=== PATIENT | female | born 1945 | race Two or more races ===

== ENCOUNTER → 2019-01-21 | Outpatient (CLI) | payer OTHER | END | disposition home or self-care (01) | LOC: MRI 12:49 | DX: M54.5 Low back pain (principal); C50.412 Malignant neoplasm of upper-outer quadrant of left female breast; I10 Essential (primary) hypertension; E78.2 Mixed hyperlipidemia; Z98.61 Coronary angioplasty status; Z95.5 Presence of coronary angioplasty implant and graft; E03.8 Other specified hypothyroidism; E04.8 Other specified nontoxic goiter | CPT/HCPCS: 72148 ==

== ENCOUNTER 2019-06-03 10:25 | Emergency (ER) | payer OTHER ==
[~2019-06-03] VITALS: Ht 167.6 cm; Wt 90.7 kg
[2019-06-03] MEDS ORDERED: TOPROL XL100 M1 (10:37)
[2019-06-03] MEDS ORDERED: NORVASC2.5 MG PO (10:38)
[2019-06-03] MEDS ORDERED: ASA81 MG PO (10:38)
[2019-06-03] MEDS ORDERED: LEVOTHYROXINE25 MCG (10:38)
[2019-06-03] MEDS ORDERED: LIPITOR20 MG PO (10:38)
[2019-06-03] MEDS ORDERED: FOSAMAX70 MG PO (10:39)
== END 2019-06-03 14:00 | disposition home or self-care (01) ==
LOC: ER 10:25
DX: G89.11 Acute pain due to trauma (principal); R07.89 Other chest pain

== ENCOUNTER 2020-12-19 10:25 | Outpatient (CLI) | payer OTHER ==
[~2020-12-19 10:25] MED LIST: ASA81 MG PO; FOSAMAX70 MG PO; LEVOTHYROXINE25 MCG; LIPITOR20 MG PO; NORVASC2.5 MG PO; TOPROL XL100 M1
== END 2020-12-19 10:39 | disposition home or self-care (01) ==
LOC: SONOGRAMA 10:25
PROVIDERS: ATTEND Internal Medicine
DX: E04.2 Nontoxic multinodular goiter (principal)

== ENCOUNTER 2020-12-24 08:36 | Emergency (ER) | payer OTHER ==
[~2020-12-24] VITALS: Ht 167.6 cm; Wt 92.5 kg
[2020-12-24] MEDS ORDERED: ELIQUIS5 MG (09:27)
[2020-12-24] MEDS ORDERED: MEDROLPACK PO (14:18)
[2020-12-24] MEDS ORDERED: NORFLEX100MG PO (14:18)
[2021-01-15] MEDS ORDERED: VITAMIN B122500 MCG (08:33)
[2021-01-15] MEDS ORDERED: VITAMIN C100 MG (08:33)
[2021-01-15] MEDS ORDERED: SKELAXIN800 MG PO (11:12)
[2021-01-15] MEDS ORDERED: DICLOFENAC POTA50 MG PO (11:12)
[2021-01-15] MEDS ORDERED: ULTRAM50 MG PO (11:12)
== END 2020-12-24 14:36 | disposition home or self-care (01) ==
LOC: ER 08:36
DX: M54.5 Low back pain (principal); M54.6 Pain in thoracic spine

== ENCOUNTER 2021-06-22 12:40 | Emergency (ER) | payer OTHER ==
[~2021-06-22] VITALS: Ht 167.6 cm; Wt 90.7 kg
[~2021-06-22 12:40] MED LIST changes: +DICLOFENAC POTA50 MG PO; +ELIQUIS5 MG; +MEDROLPACK PO; +NORFLEX100MG PO; +SKELAXIN800 MG PO; +ULTRAM50 MG PO; +VITAMIN B122500 MCG; +VITAMIN C100 MG
== END 2021-06-22 16:33 | disposition home or self-care (01) ==
LOC: ER 12:40
DX: M54.5 Low back pain (principal); I10 Essential (primary) hypertension

== ENCOUNTER 2021-07-26 08:12 | Emergency (ER) | payer OTHER ==
[~2021-07-26] VITALS: Ht 167.6 cm; Wt 91.6 kg
[2021-07-26] MEDS ORDERED: FEMARA2.5 MG PO (08:29)
[2021-07-26] MEDS ORDERED: CELEBREX100 MG PO (11:00)
[2021-07-26] MEDS ORDERED: SKELAXIN800 MG PO (11:00)
[2021-07-26] MEDS ORDERED: PERCOCET 5-3251 EACH PO (11:00)
== END 2021-07-26 12:51 | disposition home or self-care (01) ==
LOC: ER 08:12
DX: M54.2 Cervicalgia (principal); M62.838 Other muscle spasm

== ENCOUNTER → 2022-05-08 | Emergency (ER) | payer OTHER ==
[~2022-05-08] VITALS: Ht 167.6 cm; Wt 90.7 kg
[~2022-05-08] MED LIST changes: +CELEBREX100 MG PO; +FEMARA2.5 MG PO; +PERCOCET 5-3251 EACH PO
== END | disposition home or self-care (01) ==
LOC: ER 09:06
DX: M54.31 Sciatica, right side (principal); I10 Essential (primary) hypertension

== ENCOUNTER 2022-06-04 07:43 | Outpatient (CLI) | payer OTHER | END 2022-06-04 07:46 | disposition home or self-care (01) | LOC: MRI 07:43 | PROVIDERS: ATTEND Internal Medicine | DX: R42 Dizziness and giddiness (principal); G45.9 Transient cerebral ischemic attack, unspecified | CPT/HCPCS: 70553 ==

== ENCOUNTER → 2022-10-27 | Emergency (ER) | payer OTHER ==
[~2022-10-27] VITALS: Ht 167.6 cm; Wt 81.6 kg
== END | disposition home or self-care (01) ==
LOC: ER 09:33
DX: M54.2 Cervicalgia (principal); E03.9 Hypothyroidism, unspecified; E78.00 Pure hypercholesterolemia, unspecified; I11.9 Hypertensive heart disease without heart failure; I10 Essential (primary) hypertension

== ENCOUNTER 2022-11-04 13:06 | Outpatient (CLI) | payer OTHER | END 2022-11-04 13:21 | disposition home or self-care (01) | LOC: MAMO-SONO 13:06 | PROVIDERS: ATTEND Internal Medicine | DX: E03.9 Hypothyroidism, unspecified (principal); Z85.3 Personal history of malignant neoplasm of breast ==

== ENCOUNTER 2022-11-11 07:41 | Outpatient (CLI) | payer OTHER ==
[~2022-11-11 07:41] MED LIST changes: +ALENDRONATE SOD70 MG PO; +AMLODIPINE BESYL5 MG PO; +ATORVASTATIN CA20 MG PO; +CLONAZEPAM0.5 MG PO; +ELIQUIS5 MG PO; +LETROZOLE2.5 MG PO; +METOPROLOL SUC100 MG PO; +PANTOPRAZOLE SO40 MG PO; +SYNTHROID50 MCG PO
== END 2022-11-11 07:42 | disposition home or self-care (01) ==
LOC: NUCLEAR 07:41
PROVIDERS: ATTEND Internal Medicine Hematology & Oncology
DX: C50.412 Malignant neoplasm of upper-outer quadrant of left female breast (principal)
CPT/HCPCS: 78816; A9552

== ENCOUNTER 2022-11-19 12:35 | Outpatient (CLI) | payer OTHER | END 2022-11-19 12:42 | disposition home or self-care (01) | LOC: NUCLEAR 12:35 | PROVIDERS: ATTEND Internal Medicine | DX: M81.0 Age-related osteoporosis without current pathological fracture (principal) ==

== ENCOUNTER 2023-03-03 12:09 | Outpatient (CLI) | payer OTHER | END 2023-03-03 12:18 | disposition home or self-care (01) | LOC: MRI 12:09 | PROVIDERS: ATTEND Psychiatry & Neurology Neurology | DX: G45.9 Transient cerebral ischemic attack, unspecified (principal); R55 Syncope and collapse | CPT/HCPCS: 70544 ==

== ENCOUNTER 2023-12-14 10:46 | Outpatient (CLI) | payer OTHER | END 2023-12-14 10:54 | disposition home or self-care (01) | LOC: MAMO-SONO 10:46 | PROVIDERS: ATTEND Internal Medicine Hematology & Oncology | DX: E04.2 Nontoxic multinodular goiter (principal); C50.412 Malignant neoplasm of upper-outer quadrant of left female breast; I10 Essential (primary) hypertension; E78.2 Mixed hyperlipidemia; Z98.61 Coronary angioplasty status; E03.8 Other specified hypothyroidism; R73.01 Impaired fasting glucose; M54.50 Low back pain, unspecified; N64.4 Mastodynia; Z12.31 Encounter for screening mammogram for malignant neoplasm of breast ==

== ENCOUNTER → 2024-12-13 | Outpatient (CLI) | payer OTHER | END | disposition home or self-care (01) | LOC: SONOGRAMA 11:15 | PROVIDERS: ATTEND Urology | DX: N28.1 Cyst of kidney, acquired (principal) ==

== ENCOUNTER 2025-02-07 08:40 | Outpatient (CLI) | payer OTHER | END 2025-02-08 08:42 | disposition home or self-care (01) | LOC: RAD 08:40 | PROVIDERS: ATTEND Physical Medicine & Rehabilitation | DX: M25.522 Pain in left elbow (principal); M54.50 Low back pain, unspecified ==

== ENCOUNTER → 2025-03-29 10:01 | Outpatient (CLI) | payer OTHER | END | disposition home or self-care (01) | LOC: MRI 10:01 | PROVIDERS: ATTEND Physical Medicine & Rehabilitation | DX: M54.17 Radiculopathy, lumbosacral region (principal) | CPT/HCPCS: 72148 ==

== ENCOUNTER 2025-05-04 07:08 | Outpatient (CLI) | payer OTHER | END 2025-05-04 07:09 | disposition home or self-care (01) | LOC: NUCLEAR 07:08 | PROVIDERS: ATTEND Physical Medicine & Rehabilitation | DX: M06.4 Inflammatory polyarthropathy (principal) | CPT/HCPCS: 78315; A9503 ==

== ENCOUNTER 2025-06-16 10:04 | Outpatient (CLI) | payer OTHER | END 2025-06-16 10:11 | disposition home or self-care (01) | LOC: SONOGRAMA 10:04 | PROVIDERS: ATTEND Internal Medicine | DX: E04.1 Nontoxic single thyroid nodule (principal) ==